=== PATIENT | male | born 1955 | race African-American/Black ===

== ENCOUNTER → 2017-11-26 | Outpatient (CLI) | payer OTHER ==
[~2017-11-26] MED LIST: AVODART0.5 MG PO; CLEAR EYES REDN30 M1; FLOMAX0.4 MG PO; LEVAQUIN500 MG PO; LIPITOR20 MG PO; METOPROLOL TART25 MG PO; OXYBUTYNIN CHLOR5 M1 PO; REFRESH PLUS1 EACH; SINGULAIR10 MG PO; TYLENOL WITH C1 EACH PO; [UNRECOGNIZED DRUG - REMARK] PO
--- NOTE | 2017-11-26 16:52 | Diagnostic Imaging Report ---
Renal ultrasound. History: Hematuria Comparison: None Findings: Transverse and longitudinal imaging of the kidneys and bladder. The kidneys are normal in echogenicity and size. Negative for mass, hydronephrosis, or echogenic stone. The right kidney measures 10.3 x 5.7 x 4.7 cm in length and the left kidney measures 10.4 x 5.7 x 5.4 cm in length. 2.6 x 1.9 x 2.2 cm echogenic/hypoechoic mass with increased vascularity protruding into the urinary bladder. Bilateral urinary bladder jets are seen. The prostate gland measures 3.5 x 3.7 x 4.9 cm. Impression: 2.6 x 1.9 x 2.2 cm echogenic/hypoechoic mass with increased vascularity protruding into the urinary bladder. This may be arising from the prostate gland. Urology consultation is recommended. Signed by: Dr. Alcides Louis M.D. on 11/26/2017 4:49 PM
== END ==
LOC: US 15:21
PROVIDERS: ATTEND Urology
DX: R31.0 Gross hematuria (principal)
CPT/HCPCS: 76770